=== PATIENT | male | born 1980 | race Caucasian/White ===

== ENCOUNTER → 2018-01-30 13:48 | Outpatient (CLI) | payer OTHER, MEDICAID, SELFPAY ==
--- NOTE | 2018-01-30 13:53 | DI.RAD.S_ITS ---
PROCEDURE: XR CERVICAL SPINE 2V OR 3V INDICATIONS: Neck pain TECHNIQUE: 3 view(s) of the cervical spine were acquired. COMPARISON: None. FINDINGS: Bones: There is acute fracture of the spinous process of C6 and C7 with displacement. The lateral masses of C1 appear intact on the odontoid view. No suspicious bony lesions. Soft tissues: No prevertebral soft tissue swelling. IMPRESSION: C6 and C7 spinous process fractures with displacement. Further evaluation with CT is recommended. Dictated by: Summer Medina M.D. on 01/30/2018 at 14:55 Approved by: Summer Medina M.D. on 01/30/2018 at 14:56
--- NOTE | 2018-01-30 13:53 | DI.RAD.S_ITS ---
PROCEDURE: XR THORACIC SPINE 3V INDICATIONS: Back pain TECHNIQUE: 3 views of the thoracic spine were acquired. COMPARISON: [facility], CR, XR CERVICAL SPINE 2V OR 3V, 01/30/2018, 14:01. FINDINGS: Bones: There are fractures involving the spinous processes of C6 and C7 with significant posterior displacement. No thoracic spine fracture is visualized. No suspicious bony lesions. 12 pairs of ribs are noted, and appear intact where visualized. Soft tissues: No paravertebral stripe thickening. IMPRESSION: C6 and C7 spinous process fractures with displacement. Further evaluation with CT is suggested. No definitive thoracic spine fracture. Dictated by: Summer Medina M.D. on 01/30/2018 at 14:56 Approved by: Summer Medina M.D. on 01/30/2018 at 14:59
== END ==
PROVIDERS: PCP Family Medicine; Visit Provider Registered Nurse
DX: S12.500A Unspecified displaced fracture of sixth cervical vertebra, initial encounter for closed fracture (principal); S12.600A Unspecified displaced fracture of seventh cervical vertebra, initial encounter for closed fracture; M54.2 Cervicalgia; M54.9 Dorsalgia, unspecified
CPT/HCPCS: 72040; 72072

== ENCOUNTER 2018-01-30 14:33 | Emergency (ER) | payer OTHER, MEDICAID, SELFPAY ==
--- NOTE | 2018-01-30 14:39 | DI.CT.S_ITS ---
PROCEDURE: CT CERVICAL SPINE WO CON INDICATIONS: neck pain, fractures noted on x-ray TECHNIQUE: Noncontrast 3 mm thick sections acquired from the skull base to the T4 level. Sagittal and coronal reformats were then constructed. For radiation dose reduction, the following was used: automated exposure control, adjustment of mA and/or kV according to patient size. COMPARISON: [facility], CR, XR CERVICAL SPINE 2V OR 3V, 01/30/2018, 14:01. FINDINGS: Image quality: Excellent. Bones: There is a mildly displaced fracture through the posterior lamina of the C6 vertebra. There is also a mildly displaced fracture of the spinous process of C7. There is straightening of the cervical lordosis without subluxation. A limbus vertebra is demonstrated anteriorly at C5-C6. Soft tissues: Prevertebral soft tissues are normal in thickness. No paravertebral hematomas. No apical pneumothoraces. IMPRESSION: 1. Mildly displaced fracture through the bilateral lamina at C6. 2. Mild displaced C7 spinous process fracture. Findings discussed with BARBARA Her on 01/30/18 at 3:12 PM. Dictated by: Gonsalo Butts M.D. on 01/30/2018 at 14:58 Approved by: Gonsalo Butts M.D. on 01/30/2018 at 15:12
[2018-01-30 14:44] VITALS: BP 147/98; PULSE 80; RESP 16; TEMP 36.4; O2SAT 99; BMI 30.7
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
--- NOTE | 2018-01-30 15:08 | PC.NURSE ---
Patient standing up at bedside, C-collar in place. I explained to him the importance of maintaining his neck in an immobilized position and that this would best be accomplished if he was lying down. He states comfortable position is standing and wants to remain standing. He states the collar is tight enough that he cannot move his neck from side to side. understands importance of holding neck still.
[2018-01-30 15:15] VITALS: BP 128/72; PULSE 87; RESP 16; O2SAT 98
[2018-01-30 15:44] VITALS: BP 129/90; PULSE 76; RESP 17; O2SAT 97
--- NOTE | 2018-01-30 15:45 | PC.NURSE ---
DO Anand at bedside explaining CT results and that he paged [facility] to discuss transfer. Patient refuses to stay, wants to leave AMA at this time.
--- NOTE | 2018-01-30 15:47 | PC.NURSE ---
DO Anand at bedside again with me, [place] collar placed, C-spine precautions maintained. Patient fully aware of risks of leaving AMA including or paralysis. Anand explained this to the patient fully and multiple times, including with a picture drawn to explain injury. Patient A&Ox4 and with full decision making capacity, GCS 15. He refuses to stay and is able to verbalize risks. Patient agrees to stay to sign AMA paperwork and receive DC papers. DO Anand took the patient's phone number and patient agrees to receive phone call after Anand has spoken with [facility] to hear what they recommend.
--- NOTE | 2018-01-30 15:55 | PC.NURSE ---
1550 Patient signed AMA and discharge forms and exited ER with aspen collar in place.
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
== END 2018-01-30 15:57 | disposition left against medical advice (07) ==
PROVIDERS: Emergency Provider Emergency Medicine; PCP Family Medicine
DX: S12.500A Unspecified displaced fracture of sixth cervical vertebra, initial encounter for closed fracture (principal); V48.5XXA Car driver injured in noncollision transport accident in traffic accident, initial encounter; S12.600A Unspecified displaced fracture of seventh cervical vertebra, initial encounter for closed fracture; M54.2 Cervicalgia; M54.9 Dorsalgia, unspecified
CPT/HCPCS: 72040; 72072; 72125; 99283; 99284

== ENCOUNTER → 2018-03-05 12:11 | Outpatient (CLI) | payer OTHER, MEDICAID, SELFPAY ==
--- NOTE | 2018-03-05 | DI.MRI.S_ITS ---
PROCEDURE: MR CERVICAL SPINE WO CON INDICATIONS: CERVICAL SPINE PAIN TECHNIQUE: Noncontrast sagittal T1 spin echo and T2 fast spin echo, sagittal STIR, foraminal oblique sagittal T2 fast spin echo, and axial gradient echo or T2 fast spin echo through the cervical spine. COMPARISON: [facility], CR, XR CERVICAL SPINE 2 OR 3 VIEWS, 02/20/2018, 11:51. [facility], CT, CT CERVICAL SPINE WO CON, 01/30/2018, 14:41. [facility], CR, XR CERVICAL SPINE 2V OR 3V, 01/30/2018, 14:01. FINDINGS: Image quality: Excellent. Alignment and Curvature: There is normal bony alignment. Bone Marrow: Marrow demonstrates normal overall signal. Spinal Cord: Visualized spinal cord has normal size and signal. No cerebellar tonsillar herniation. Paraspinous Soft Tissues: No paravertebral masses. Prevertebral soft tissues are normal in thickness. C2-C3: No disc bulge, spinal stenosis or foraminal narrowing. C3-C4: Mild disc bulge with minimal stenosis. No foraminal narrowing. C4-C5: Mild disc bulge with minimal stenosis. Mild left foraminal narrowing. C5-C6: Mild disc bulge with minimal stenosis. Mild left foraminal narrowing. C6-C7: Mild disc bulge with minimal stenosis. Mild bilateral foraminal narrowing. C7-T1: Motion is present, limiting evaluation. IMPRESSION: 1. Mild disc bulges with minimal spinal stenosis. 2. Minimal foraminal narrowing. Dictated by: Maria A Do M.D. on 03/05/2018 at 13:07 Approved by: Maria A Do M.D. on 03/05/2018 at 14:12
== END ==
PROVIDERS: PCP Family Medicine; Visit Provider Orthopaedic Surgery Orthopaedic Surgery of the Spine
DX: M50.21 Other cervical disc displacement, high cervical region (principal)
CPT/HCPCS: 72141

== ENCOUNTER → 2018-04-18 14:45 | Outpatient (CLI) | payer OTHER, MEDICAID, SELFPAY ==
--- NOTE | 2018-04-18 14:46 | DI.RAD.S_ITS ---
PROCEDURE: XR CERVICAL SPINE 2V OR 3V INDICATIONS: follow up fractures TECHNIQUE: 4 view(s) of the cervical spine were acquired. COMPARISON: None. FINDINGS: Bones: The known fractures through the bilateral lamina at C6 are again visualized and not significantly changed in radiographic appearance or alignment. Stable appearance and alignment of the mildly displaced fracture involving the spinous process of C7. No acute fractures. The lateral masses of C1 appear intact on the odontoid view. No suspicious bony lesions. Soft tissues: No prevertebral soft tissue swelling. IMPRESSION: Stable radiographic appearance and alignment of known bilateral laminar fractures at C6 and mildly displaced C7 spinous process fracture. Dictated by: Juan Carlos De Los Santos M.D. on 04/18/2018 at 17:22 Approved by: Juan Carlos De Los Santos M.D. on 04/18/2018 at 17:29
== END ==
PROVIDERS: PCP Family Medicine; Visit Provider Family Medicine
DX: S12.500A Unspecified displaced fracture of sixth cervical vertebra, initial encounter for closed fracture (principal); S12.600A Unspecified displaced fracture of seventh cervical vertebra, initial encounter for closed fracture
CPT/HCPCS: 72040

== ENCOUNTER → 2019-01-22 12:30 | Outpatient (CLI) | payer OTHER, MEDICAID, SELFPAY ==
--- NOTE | 2019-01-22 12:31 | DI.RAD.S_ITS ---
PROCEDURE: XR CERVICAL SPINE 2V OR 3V INDICATIONS: h/o fractures, new numbness in hands feet TECHNIQUE: 3 view(s) of the cervical spine were acquired. COMPARISON: [facility], MR, MR CERVICAL SPINE WO CON, 03/05/2018, 12:25. [facility], CT, CT CERVICAL SPINE WO CON, 01/30/2018, 14:41. [facility], CR, XR CERVICAL SPINE 2 OR 3 VIEWS, 02/20/2018, 11:51. [facility], CR, XR CERVICAL SPINE 2V OR 3V, 04/18/2018, 14:46. FINDINGS: Bones: There is grade 1 retrolisthesis of C5 on C6, unchanged from the last examination. Mild displacement of C6 spinous process secondary to bilateral laminar fractures. Alignment is stable. There is displaced spinous process fracture of C7. The lateral masses of C1 appear intact on the odontoid view. No suspicious bony lesions. Soft tissues: No prevertebral soft tissue swelling. IMPRESSION: 1. Stable radiographic appearance and alignment related to old bilateral C6 laminar fracture of and C7 spinous process fracture. Dictated by: Summer Medina M.D. on 01/22/2019 at 14:04 Approved by: Summer Medina M.D. on 01/22/2019 at 14:11
== END ==
PROVIDERS: PCP Family Medicine; Visit Provider Family Medicine
DX: R20.2 Paresthesia of skin (principal); M43.12 Spondylolisthesis, cervical region; S12.600S Unspecified displaced fracture of seventh cervical vertebra, sequela; S12.500S Unspecified displaced fracture of sixth cervical vertebra, sequela
CPT/HCPCS: 72040